=== PATIENT | male | born 1990 | race Two or more races ===

== ENCOUNTER 2017-01-15 13:53 | Emergency (ER) | payer OTHER, SELFPAY ==
[~2017-01-15] VITALS: Ht 172.7 cm; Wt 80.7 kg
[2017-01-15] MEDS ORDERED: DIPHENHYDRAMINE 50 MG/ML, 1ML IVPush ONE (16:30)
[2017-01-15] MEDS ORDERED: PROCHLORPERAZINE 5 MG/ML, 2ML IVPush ONE (16:30)
[2017-01-15] MEDS ORDERED: SODIUM CHLORIDE 0.9% 1,000ML IVBOLUS ONE (16:30)
[2017-01-15] MEDS ORDERED: SODIUM CHLORIDE FLUSH 10ML SYR IVF ONE (16:30)
[2017-01-15] MEDS ORDERED: DIPHENHYDRAMINE 50 MG/ML, 1ML ONE (17:15)
[2017-01-15] MEDS ORDERED: PROCHLORPERAZINE 5 MG/ML, 2ML ONE (17:15)
[2017-01-15 18:15] VITALS: BP 111/70
== END 2017-01-15 18:16 | disposition home or self-care (01) ==
LOC: ED 18:10
DX: G43.019 Migraine without aura, intractable, without status migrainosus (principal)
CPT/HCPCS: 96361; 96374; 96375; 99284; J0780; J1200; J7030